=== PATIENT | female | born 1965 | race Asian ===

== ENCOUNTER 2025-02-22 15:10 | Outpatient (AMB) | payer OTHER, SELFPAY ==
--- NOTE | 2025-02-22 15:24 | MHC.OFFVIS ---
Vital Signs 02/22/25 15:28 Height 5 ft 2 in Weight 153 lb BMI 28.0 BP 110/64 Blood Pressure Location Rt brachial Position Sitting Pulse 70 Pulse Source Pulse Oximeter Pulse Oximetry (%) 98 Oxygen Delivery Method Room Air Intake Visit Reasons: Cough Vocational Examiner Required: Yes Certified Emergency Vehicle Technician: Certified Emergency Vehicle Technician offered & declined Accompanied by: Daughter Allergies No Known Allergies Allergy (Verified 02/22/25 15:31) Medication List - Last Reconciled 02/22/25 by Usha Hinojosa LPN atorvastatin 20 mg PO DAILY HPI HPI Cough: Details: Dominique is a pleasant 59 year old female, never smoker, with underlying HLD. She was referred by PCP for pulmonary evaluation. She reports chronic dry cough that has persisted for the last three years that has progressively worsened. Cough is mostly dry however occasionally productive with clear sputum. She reports cough is triggered by cold and more persistent after URI. She also reports occasional increased fatigue with exertion. She denies wheezing or chest tightness. She has trialed tessalon perles and delsyum with minimal improvement. She denies h/o asthma/COPD. She denies second hand smoke exposure. She denies any reflux symptoms. She denies seasonal allergies, or any pets at home. She denies occupational exposures. She reports father, smoker, with some lung condition however unknown, otherwise denies pertinent family history. [facility] Social History (Updated 02/22/25 @ 15:29 by Usha Hinojosa LPN) Patient Tobacco Use Status: Never used Tobacco Review of Systems Const Denies chills, Denies excessive sweating, Denies fever(s), Denies headache(s) and Denies night sweats Eyes Denies dry eyes, Denies irritation and Denies itchy eyes ENT Reports Normal hearing present, Denies headache(s), Denies nasal congestion, Denies nasal discharge, Denies post nasal drip and Denies sore throat Card Denies chest pain, Denies chest pain at rest, Denies chest pain with activity, Denies claudication, Denies leg edema, Denies dyspnea, Denies dyspnea on exertion, Denies orthopnea and Denies paroxysmal nocturnal dyspnea Resp Denies chest congestion, Denies excessive phlegm production, Denies pain on inspiration, Denies pain with cough, Denies dyspnea, Denies dyspnea on exertion, Denies stridor and Denies wheezing Musc Denies myalgias Neuro Reports Normal hearing present and Denies headache(s) Endo Denies excessive sweating Colt/Lymph Denies lymphadenopathy Aller/Immun Denies itchy eyes, Denies seasonal rhinorrhea and Denies wheezing Physical Exam Vital Signs: Last Vital Signs Pulse 70 02/22/25 15:28 BP 110/64 02/22/25 15:28 Pulse Ox 98 02/22/25 15:28 Oxygen Delivery Method Room Air 02/22/25 15:28 BMI result Body Mass Index 28.0 Const General: cooperative, healthy appearing, comfortable, no acute distress, well developed and alert Orientation/consciousness: patient oriented x3 Limitations: no limitations HEENT Head: Yes normal to inspection, Yes normocephalic and Yes atraumatic Ears: hearing grossly normal bilaterally and external ears normal Eyes General: appearance normal, both eyes and all related structures Eyelids: Yes eyelids normal Sclerae: sclerae normal EOM: EOMs intact bilaterally Neck Neck: Yes normal visual inspection and Yes no lymphadenopathy Lymphatic: no lymphadenopathy noted Chest Chest palpation & inspection: normal inspection of the chest Resp Effort & Inspection: normal respiratory effort, able to speak in complete sentences, no audible wheezes, no cough, no stridor, not tachypneic, no tripod positioning and no use of accessory muscles Auscultation: clear to auscultation bilaterally Cardio Jugular venous distension: no JVD Rate: regular rate Rhythm: regular rhythm Skin Other: warm, dry General skin exam: no rashes or lesions noted Neuro General: patient oriented x3 Cranial nerves: Yes Normal hearing present Cognition (Neuro): normal cognition Gait exam (Neuro): Normal gait present Extrem General: Yes normal to inspection, Yes capillary refill normal, Yes no clubbing, cyanosis or edema and Yes no pedal edema Psych Appearance: grossly normal and well kempt Speech and movement: Normal speech and movement present and Clear speech present Affect: normal affect Attitude: cooperative Thought process: Normal thought process present Thought content: Normal thought content present Insight: Good insight present (Psych) Judgement: Good judgement present (Psych) Assessment & Plan Assessment & Plan (1) Reactive airway disease: Code(s): J45.909 - Unspecified asthma, uncomplicated Category: Medical (2) Cough: Code(s): R05.9 - Cough, unspecified Category: Medical Plan Dominique presents for pulmonary evaluation for chronic cough that has progressively worsened over the last three years. She reports symptoms triggered by cold weather and respiratory infections suggestive of reactive airways disease vs asthma. Will empirically trial albuterol MDI. Will send for PFT as well as CXR. All questions were answered and patient is in agreement of plan. Will follow up to review results or sooner if needed. Orders: Orders XR chest 2V Today R05.9 - Cough, unspecified PFT pulmonary function test Today R05.9 - Cough, unspecified Medications: New albuterol sulfate 90 mcg/actuation 2 puffs inhalation Q4-6H PRN 1 ea 0RF shortness of breath or wheezing Coding Level of Care Code New Pt Level 4 (69964) Diagnoses Reactive airway disease J45.909 Cough R05.9
[2025-02-22 15:28] VITALS: BP 110/64; PULSE 70; O2SAT 98; BMI 28.0
--- OUTSIDE RECORDS SUMMARY | 2025-02-22 18:11 | XMS_ITS ---
Author Organization [facility] Address [address] [place] [id number] Care Team Providers Care Carving Machine Operator Name Role Phone GILDA MCKNIGHT Primary Care Provider REASON FOR VISIT referral to [facility] Encounters Encounter Location Date Provider Diagnosis [address] [address] 01/20/2025 GILDA MCKNIGHT Plan Of Treatment Next Appt Details Provider Name:GILDA MCKNIGHT , 11/24/2025 08:00:00 AM, [address] [place] [address], [place], [phone], Progress Notes * LEIGH GODDARD TDOB: [birth year] (59 yo F)Acc No.[id number]:01/20/2025 Patient:?LEIGH GODDARD :1965???Age:59 Y???Sex:Female Address:[address] [place] [id number] * true * Date:? Generated for Printi evelyn/Tony/eTransmitting on:?02/22/2025 06:11 PM EDT
--- OUTSIDE RECORDS SUMMARY | 2025-02-22 18:12 | XMS_ITS | Patient Health Record ---
Author Organization [facility] Address [address] [place] [address] Care Team Providers Care Retail Salesperson Name Role Phone GILDA MCKNIGHT Primary Care Provider Allergies No Known Allergies Results Component Value Reference Range Notes Lipid Panel-[id number] Reviewed date:07/17/2024 10:15:38 AM Interpretation: Performing Lab:[facility], [address] [facility], [place], Phone - [phone], Director - Jacoby Notes/Report: Cholesterol, Total 135 100-199 mg/dL Triglycerides 112 0-149 mg/dL HDL Cholesterol 44 >39 mg/dL VLDL Cholesterol Jose Antonio 20 5-40 mg/dL LDL Chol Calc (NIH) 71 0-99 mg/dL Reason For Referral Reason CHRONIC COUGH- DR TIAN BOWSER Diagnosis 1 Cough, unspecified ( R05.9) Referral Organization [facility] Referring Provider First Name GILDA Referring Provider Last Name ROXANNA Referring Provider Speciality Internal M edicine Referred Provider Specialty Pulmonary Di [facility] General Notes Referral faxed to [facility]. Please call patient to schedule.Maddie Christy 01/20/2025 03:03:55 PM > Referral Priority Routine Medications Medication SIG (Take, Route, Frequency, Duration) Notes Start Date End Date Status Atorvastatin Calcium 20 MG 1 tablet Oral ly Once a day for 30 days 01/06/2024 Active Immunizations Vaccine Route Administration Date Status Comme nts COVID 19 Pfizer Unknown 02/10/2021 Administered COVID 19 Pfizer Unknown 03/03/2021 Administered COVID 19 Pfizer Unknown 10/09/2021 Administered Flublok Unknown 09/15/2024 Administered Fluzone QD Unknown 12/11/2022 Administered Shingrix Unknown 09/19/2020 Administered Shingrix Unknown 02/24/2022 Administered Tdap Unknown 08/23/2019 Administered Social History Tobacco Use: Social History Observation Description Date Details (start date - stop date) Never Smoker NA - NA Tobacco Use/Smoking Question Answer Notes Are you a nonsmoker Alcohol Screen (Audit-C) Question Answer Notes Did you have a drink containing alcohol in the p ast year? No Points 0 Interpretation Negative Problems Problem Type SNOMED Code ICD Code Onset Dates Problem Status W/U Status Risk Notes Problem Mixed hyperlipidemia (832086969) Mixed hyperlipidemia (E78.2) Active confirmed Vital Signs Heart Rate 71 /min 11/22/2024 Temperature 96.9 degrees Fahrenheit 11/22/2024 Blood pressure diastolic 84 mm Hg 11/22/2024 Oximetry 99 % 11/22/2024 Height 5'2 in 11/22/2024 Blood pressure systolic 130 mm Hg 11/22/2024 Weight 150.6 lbs 11/22/2024 BMI 27.54 kg/m2 11/22/2024 Encounters Encounter Location Date Provider Diagnosis [address] [place] [address] 11/22/2024 VO GUL Mixed hyperlipidemia E78.2 ; Annual physical exam Z00.00 ; Impaired fasting glucose R73.01 and Cough, unspecified R05.[address] [place] [address] 02/25/[address] [place] [address] 03/07/[address] [place] [address] 03/09/[address] [place] [address] 04/18/2024 VO GUL Mixed hyperlipidemia E78.[address] [place] [address] 01/20/2025 VO GUL Assessments Encounter Date Diagnosis (ICD Code) Assessment Notes Treatment Notes Treatment Clinical Notes Section Notes 04/18/2024 Mixed hyperlipidemia (ICD-10 - E78.2) 11/22/2024 Mixed hyperlipidemia (ICD-10 - E78.2) Mrs Goddard is pleasant 59 years old lady with hyperlipidemia is here for annual physical. She is accompanied by her daughter is translating for her. She complains of chronic cough which at times is productive for the past few months. Plan is as follows Hyperlipidemia. Continue atorvastatin 20 mg 1 tablet daily and repeat blood work in one year Impaired fasting glucose. Diet restrictions and check fasting sugars and hemoglobin A1c. Chronic cough. She does not have red flags to skin be seasonal allergies, postnasal drip or possibility of silent reflux. She is given referral to see pulmonology for further workup EKG is normal sinus rhythm at 60 bpm with no acute ST-T wave changes, no bundle branch blocks, normal intervals. She is full code and her is her healthcare proxy. She is up to date on age-specific screening. Referral for mammogram and she would get pneumonia vaccine. 11/22/2024 Annual physical exam (ICD-10 - Z00.00) Mrs Goddard is pleasant 59 years old lady with hyperlipidemia is here for annual physical. She is accompanied by her daughter is translating for her. She complains of chronic cough which at times is productive for the past few months. Plan is as follows Hyperlipidemia. Continue atorvastatin 20 mg 1 tablet daily and repeat blood work in one year Impaired fasting glucose. Diet restrictions and check fasting sugars and hemoglobin A1c. Chronic cough. She does not have red flags to skin be seasonal allergies, postnasal drip or possibility of silent reflux. She is given referral to see pulmonology for further workup EKG is normal sinus rhythm at 60 bpm with no acute ST-T wave changes, no bundle branch blocks, normal intervals. She is full code and her is her healthcare proxy. She is up to date on age-specific screening. Referral for mammogram and she would get pneumonia vaccine. 11/22/2024 Impaired fasting glucose (ICD-10 - R73.01) Mrs Goddard is pleasant 59 years old lady with hyperlipidemia is here for annual physical. She is accompanied by her daughter is translating for her. She complains of chronic cough which at times is productive for the past few months. Plan is as follows Hyperlipidemia. Continue atorvastatin 20 mg 1 tablet daily and repeat blood work in one year Impaired fasting glucose. Diet restrictions and check fasting sugars and hemoglobin A1c. Chronic cough. She does not have red flags to skin be seasonal allergies, postnasal drip or possibility of silent reflux. She is given referral to see pulmonology for further workup EKG is normal sinus rhythm at 60 bpm with no acute ST-T wave changes, no bundle branch blocks, normal intervals. She is full code and her is her healthcare proxy. She is up to date on age-specific screening. Referral for mammogram and she would get pneumonia vaccine. 11/22/2024 Cough, unspecified (ICD-10 - R05.9) Mrs Goddard is pleasant 59 years old lady with hyperlipidemia is here for annual physical. She is accompanied by her daughter is translating for her. She complains of chronic cough which at times is productive for the past few months. Plan is as follows Hyperlipidemia. Continue atorvastatin 20 mg 1 tablet daily and repeat blood work in one year Impaired fasting glucose. Diet restrictions and check fasting sugars and hemoglobin A1c. Chronic cough. She does not have red flags to skin be seasonal allergies, postnasal drip or possibility of silent reflux. She is given referral to see pulmonology for further workup EKG is normal sinus rhythm at 60 bpm with no acute ST-T wave changes, no bundle branch blocks, normal intervals. She is full code and her is her healthcare proxy. She is up to date on age-specific screening. Referral for mammogram and she would get pneumonia vaccine. Plan Of Treatment Pending Test Test Name Order Date Chest X-ray PA and lateral 02/15/2024 MAMMOGRAM, SCREENING 11/22/2024 HEMOGLOBIN A1C 08/06/2023 LIPID PANEL 01/04/2024 Future Test Test Name Order Date Hemoglobin [id number] 11/22/2024 Lipid Panel-[id number] 11/22/2024 Comp. Metabolic Panel [id number] 2023 Next Appt Details Provider Name:GILDA MCKNIGHT , 11/24/2025 08:00:00 AM, [address] [place] [address], [phone], Insurance Providers Payer Name Payer Address Payer Phone Subscriber Number Group Number Insured Name Patient Relationship to Insured Coverage Start Date Coverage End Date [facility] [address] [place] [address] [id number] LEIGH GODDARD Self - patient is the insured Medical (General) History Medical History History ICD Code Mixed hyperlipidemia Impaired fasting glucose Surgical History Surgery Date(Month/Year) total hysterectomy, excessive bleeding 2 019
--- OUTSIDE RECORDS SUMMARY | 2025-02-22 18:12 | XMS_ITS ---
Author Organization [facility] Address [address] [place] [address] Care Team Providers Care Rn Interventional Name Role Phone SOLCaleb VO Primary Care Provider Allergies No Known Allergies Reason For Referral Reason CHRONIC COUGH- DR TIAN BOWSER Diagnosis 1 Cough, unspecified ( R05.9) Referral Organization [facility] Referring Provider First Name GILDA Referring Provider Last Name ROXANNA Referring Provider Speciality Internal M edicine Referred Provider Specialty Pulmonary Di seases General Notes Referral faxed to nic Pulmonology. Please call patient to schedule.Maddie Christy 01/20/2025 03:03:55 PM > Referral Priority Routine REASON FOR VISIT CPE Medications Medication SIG (Take, Route, Frequency, Duration) Notes Start Date End Date Status Atorvastatin Calcium 20 MG 1 tablet Oral ly Once a day for 30 days 01/06/2024 Active Social History Tobacco Use: Social History Observation Description Date Details (start date - stop date) Never Smoker NA - NA Tobacco Use/Smoking Question Answer Notes Are you a nonsmoker Alcohol Screen (Audit-C) Question Answer Notes Did you have a drink containing alcohol in the p ast year? No Points 0 Interpretation Negative Vital Signs Temperature 96.9 degrees Fahrenheit 11/22/20 Oximetry 99 % 11/22/2024 Heart Rate 71 /min 11/22/2024 Blood pressure systolic 130 mm Hg 11/22/20 Blood pressure diastolic 84 mm Hg 024 Weight 150.6 lbs 11/22/2024 BMI 27.54 kg/m2 11/22/2024 Height 5'2 in 11/22/2024 Encounters Encounter Location Date Provider Diagnosis [facility] [address] [place] [address] 11/22/2024 GILDA MCKNIGHT Mixed hyperlipidemia E78.2 ; Annual physical exam Z00.00 ; Impaired fasting glucose R73.01 and Cough, unspecified R05.9 Assessments Encounter Date Diagnosis (ICD Code) Assessment Notes Treatment Notes Treatment Clinical Notes Section Notes 11/22/2024 Mixed hyperlipidemia (ICD-10 - E78.2) Mrs [...] Treatment Pending Test Test Name Order Date MAMMOGRAM, SCREENING 11/22/2024 Future Test Test Name Order Date Hemoglobin [id number] 11/22/2024 Lipid Panel-[id number] 11/22/2024 Comp. Metabolic Panel ([id number] 2023 Referrals Referral Date Details 11/22/2024 11/22/2024, CHRONIC COUGH- DR ALCARAZ Next Appt Details Follow Up: 1 Year- Sarah HUANG n: Provider Name:GILDA MCKNIGHT , 11/24/2025 08:00:00 AM, [address] [place] [address], [phone], Progress Notes * LEIGH GODDARD TDOB: [birth year] (59 yo F)Acc No.[id number]:11/22/2024 Progress Notes Patient:LEIGH MEZA Provider:?GILDA MCKNIGHT MD :1965???Age:59 Y???Sex:Female D ate:11/22/2024 Address:[address] [place], [place] [id number] Subjective: * Chief Complaints: * ???CPE * HPI: ???Internal Medicine:?Mrs. Goddard is a 58-year-old Malawian-speaking lady and? She is accompanied by her daughter who translates for her. She is here for her annual physical.? She has hyperlipidemia currently on atorvastatin and last lipid panel was within reasonable limits.? She also complains of productive cough.? She is non-smoker.? Is been going on for a long time.? She is physically active and exercises regularly. She does not appear anxious or depressed. She sleeps well, appetite is good. She has stress incontinence. No GI symptoms. She denies any other active issues or concerns. * ROS:?General/Constitutional:?Overall health?Good.?Change in appetite?denies.?Chills?denies.?Fever?denies.?Night sweats?denies.?Sleep disturbance?denies.?Weight gain?denies.?Weight loss?denies.?Neurologic:?Difficulty speaking?denies.?Dizziness?denies.?Gait abnormality?denies.?Headache?denies.?Loss of strength?denies.?Memory loss?denies.?Seizures?denies.?Tingling/Numbness?denies .?Ophthalmologic:?Blurred vision?denies.?Discharge?denies.?Dry eye?denies.?Red eye?denies.?ENT:?Change in Voice?Denies.?Cold Symptoms?Denies.?Cough?Admits.?Dizziness?Denies.?Nasal Congestion?Denies.?Otalgia?Denies.?postnasal drip?Denies.?Blocked ear?denies.?Nosebleed?denies.?Snoring?denies.?Cardiovascular:?Diaphoresis?Denies.?Pedal Edema?Denies.?PND (Paroxsymal nocturnal dyspnea)?Denies.?Chest pain?denies.?Difficulty laying flat?denies.?Dyspnea on exertion?denies.?Heart murmur?denies.?Orthopnea?denies.?Respiratory:?Snoring?denies.?Asthma?denies.?Cough?denies.?Shortness of breath with exertion?denies.?Sputum production?denies.?Wheezing?denies.?Gastrointestinal:?Change in bowel habits?denies.?Constipation?denies.?Decreased appetite?denies.?Diarrhea?denies.?Heartburn?denies.?Nausea?denies.?Vomiting?arcadio es.?Musculoskeletal:?tingling/numbness?Denies.?myalgias?Denies.?Joint Swelling?Denies.?extremeties?normal.?Arthritis?denies.?Back problems?denies.?Carpal tunnel?denies.?Joint stiffness?denies.?Muscle aches?denies.?Endocrine:?Bowel Changes?Denies.?Breast Discharge?Denies.?poor libido?Denies.?Cold intolerance?denies.?Excessive sweating?denies.?Excessive thirst?denies.?Frequent urination?denies.?Thyroid problems?denies.?Skin:?Bruising?Denies.?Eczema?denies.?Hair changes?denies.?Rash?denies.?Skin lesion(s)?denies.?Psychiatric:?Anxiety?denies.?Depressed mood?denies.?Difficulty sleeping?denies.?Nervous breakdown?denies.?Substance abuse?denies.?Urology:?abnormal menstrual bleeding?denies.?blood in urine?denies.?burning on urination?denies.?difficulty urinating?denies.?discharge?denies.?dysuria?denies.? * Medical History:? * Surgical History:?total hyst erectomy, excessive bleeding 2019 * Hospitalization/Major Diagno stic Procedure:? * Family History:?2 daughter(s ) . .? diabetes. * Social History:?Tobacco Use:?Tobacco Use/Smoking?Are you a?nonsmoker ???Drugs/Alcohol:?Alcohol Screen (Audit-C)?Did you have a drink containing alcohol in the past year??No ?Points?0 ?Interpretation?Negative ???Miscellaneous:?Children: 2. ?Exercise: yes. ?Marital status: . ?Occupation: Works full-time, works in the [employer]. * Medications:?TakingAtorvasta tin Calcium 20 MG Tablet 1 tablet Orally Once a day Taking Atorvastatin Calcium 20 MG Tablet 1 tablet Orally Once a day DiscontinuedBenzonatate 100 MG Capsule 1 capsule as needed Orally Three times a day predniSONE 20 MG Tablet 1 tablet Orally Once a day Tessalon Perles 100 MG Capsule 1 capsule Orally Once a day Medication List reviewed and reconciled with the patientDiscontinued Benzonatate 100 MG Capsule 1 capsule as needed Orally Three times a day Discontinued predniSONE 20 MG Tablet 1 tablet Orally Once a day Discontinued Tessalon Perles 100 MG Capsule 1 capsule Orally Once a day Medication List reviewed and reconciled with the patient * Allergies:?N.K.D.A.no[Allerg ies Verified] Objective: * Vitals:?Temp:96.9F, Oxygen s at %:99%, HR:71/min, BP:130/84mm Hg, Wt:150.6lbs, BMI:27.54Index, Ht: 5'2 . * ???Past Orders: Lab:Lipid Panel-[id number] * Collection Date 07/15/2024 03/24/2024 Collection Time 09:08 AM 08:01 AM Order Date 04/18/2024 02/15/2024 Cholesterol, Total 135 (Ref Range: 100-199 mg/dL) 150 (Ref Range: 100-199 mg/dL) Triglycerides 112 (Ref Range: 0-149 mg/dL) 94 (Ref Range: 0-149 mg/dL) HDL Cholesterol 44 (Ref Range: >39 mg/dL) 45 (Ref Range: >39 mg/dL) VLDL Cholesterol Jose Antonio 20 (Ref Range: 5-40 mg/dL) 18 (Ref Range: 5-40 mg/dL) LDL Chol Calc (NIH) 71 (Ref Range: 0-99 mg/dL) 87 (Ref Range: 0-99 mg/dL) ???Lab:COMPREHENSIVE METABOLIC PANEL (Order Date - 08/05/2023) (Collection Date & Time - 08/05/2023 09:00 AM)?ValueReference Range?ALBUMIN4.5(3.4- 4.8) - GM/DL?ALK PHOS78(35-104) - U/L?BILIRUBIN,TOTAL0.5(0-1.2) - MG/DL?CALCIUM9.6(8.6-10.5) - MG/DL?XOQWKOYPQQI54(22-29) - MMOL/L ?JARELALR393(98-107) - MMOL/L?EST GFR NON IEFMWOSE579- ML/MIN/1.73 M2?CREATININE0.6(0.5-1.0) - MG/DL?ANION GAP11(4-17) - ?HHLAUST336D(70-99) - MG/DL?AST27(0-32) - U/L?ALT30(0-33) - U/L?POTASSIUM4.2(3.6-5.2) - MMOL/L?XCJJPI433(133-145) - MMOL/L ?TOTAL PROTEIN6.8(6.2-8.2) - GM/DL?BUN15(6-20) - MG/DL?AG RATIO2.0- ???Lab:LIPID PANEL (Order Date - 08/05/2023) (Collection Date & Time - 08/05/2023 09:00 AM)?ValueReference Range?LDL CHOLESTEROL, VTYHIOPQDB254V(0-130) - MG/DL?CHOLESTEROL, EADQR056N(<200) - MG/DL ?HDL CHOL55(>39) - MG/DL?NON HDL CHOLESTEROL (CALC)190H(<160) - MG/DL?TKBVKBAPJZLK74(<150) - MG/DL * Examination: ???General Examination: ?Psychiatry?Normal.?GENERAL APPEARANCE:?Well developed, well nourished, in no acute distress.?MUSCULOSKELETAL:?Normal.?HEAD:?Normocephalic, atraumatic.?EYES:?Pupils equal, round, reactive to light and accommodation, sclera non-icteric.?EARS:?auditory canal clear tympanic membrane intact, clear light reflex present .?ORAL CAVITY:?Normal.?THROAT:?Clear.?OROPHARYNX?Normal.?SINUSES?Normal.?NECK/THYROID:?Neck supple, full range of motion, no cervical lymphadenopathy.?SKIN:?Warm and dry, no suspicious lesions.?HEART:?S1, S2 normal regular rate and rhythm no murmurs, rubs, gallops .?LUNGS:?clear to auscultation bilaterally good air movement no wheezes, rales, rhonchi .?BREASTS:?__.?ABDOMEN:?Soft, nontender, nondistended, bowel sounds present, normal.?EXTREMITIES:?Normal.?PERIPHERAL PULSES:?Normal.?NEUROLOGIC:?Nonfocal,? appropriate?motor strength normal upper and lower extremities, sensory exam intact.?FEMALE GENITOURINARY:?__.?MALE GENITOURINARY:?__.?PODIATRIC:?Normal.?Welfare Project Manager? .? Assessment: * Assessment: 1.?Annual physical exam - Z0 0.00 (Primary)???2.?Mixed hyperlipidemia - E78.2???3.?Impaired fasting glucose - R73.01???4.?Cough, unspecified - R05.9??? Mrs Goddard is pleasant 59 ye ars old lady with hyperlipidemia is here for annual physical.? She is accompanied by her daughter is translating for her.? She complains of chronic cough which at times is productive for the past few months.? Plan is as follows Hyperlipidemia.? Continue atorvastatin 20 mg 1 tablet daily and repeat blood work in one year Impaired fasting glucose.? Diet restrictions and check fasting sugars and hemoglobin A1c. Chronic cough.? She does not have red flags to skin be seasonal allergies, postnasal drip or possibility of silent reflux.? She is given referral to see pulmonology for further workup EKG is normal sinus rhythm at 60 bpm with no acute ST-T wave changes, no bundle branch blocks, normal intervals. She is full code and her is her healthcare proxy. She is up to date on age-specific screening.? Referral for mammogram and she would get pneumonia vaccine. Plan: * Treatment: 2.?Mixed hyperlipidemia?LAB: Lipid Panel-[id number] (Ordered for 11/22/2024) 3.?Impaired fasting glucose?LAB: Hemoglobin [id number] (Ordered for 11/22/2024) 4.?Others? Referral To:Pulmonary Diseases ?Reason:CHRONIC COUGH- DR ALCARAZ * Procedure Codes:?3075F SYST BP GE 130 - 139MM [id number] DIAST BP 80-89 MM [id number] ELECTROCARDIOGRAM, [id number] BRIEF EMOTIONAL/BEHAV [id number] AUDIT/DAST, 15-30 MIN * Preventive Medicine:?COVID (3) 2020 FLU 2023 SHINGRIX 08/2020, 01/2022 TDAP 07/2019 BMD NO COLONOSCOPY 09/2020 10 YR? EYE EXAM NO [employer] SOCIAL WORKER NO MAMMOGRAM [facility] 02/2023. * Follow Up:?1 Year- AW * * Sign off status: Completed true * Provider:?GILDA MCKNIGHT MD Date:?11/22 Generated for Zach rivas/Tony/eTransmitting on:?02/22/2025 06:11 PM EDT History and Physical Notes * HPI (History of Present Illness) Category Sub-Category Detail Notes Category Not es Internal Medicine Mrs. Drew dixon is a 58-year-old Malawian-speaking lady and She is accompanied by her daughter who translates for her. She is here for her annual physical. She has hyperlipidemia currently on atorvastatin and last lipid panel was within reasonable limits. She also complains of productive cough. She is non-smoker. Is been going on for a long time. She is physically active and exercises regularly. She does not appear anxious or depressed. She sleeps well, appetite is good. She has stress incontinence. No GI symptoms. She denies any other active issues or concerns. Examination Category Sub-Category Detail Notes Category Not es General Examination GENERAL APPEARANCE: Well dev eloped, well nourished, in no acute distress HEAD: Normocephalic, atrau matic EYES: Pupils equal, round, reactive to light and accommodation, sclera non-icteric EARS: auditory canal clear tympanic membrane intact, clear light reflex present THROAT: Clear NECK/THYROID: Neck supple, full ra nge of motion, no cervical lymphadenopathy HEART: S1, S2 normal regula r rate and rhythm no murmurs, rubs, gallops LUNGS: clear to auscultatio n bilaterally good air movement no wheezes, rales, rhonchi ABDOMEN: Soft, nontender, non distended, bowel sounds present, normal NEUROLOGIC: Nonfocal, appropriat e motor strength normal upper and lower extremities, sensory exam intact SKIN: Warm and dry, no lorrie picious lesions EXTREMITIES: Normal PERIPHERAL PULSES: Normal BREASTS: __ MUSCULOSKELETAL: Normal MALE GENITOURINARY: __ FEMALE GENITOURINARY: __ ORAL CAVITY: Normal PODIATRIC: Normal Psychiatry Normal OROPHARYNX Normal SINUSES Normal Welfare Project Manager Consultation Request Notes Referral Date Referring Provider Referred Provider Not es 11/22/2024 GILDA MCKNIGHT , CHRONIC COUGH- DR ALCARAZ
--- OUTSIDE RECORDS SUMMARY | 2025-02-22 18:12 | XMS_ITS ---
Author Organization [facility] Address [address] [place] [address] Care Team Providers Care Citizenship Instructor Name Role Phone TRAN MCKNIGHTVO Primary Care Provider Results Component Value Reference Range Notes Lipid Panel-[id number] Reviewed date:07/17/2024 10:15:38 AM Interpretation: Performing Lab:[facility], [address], [place], Phone - [phone], Director - Jacoby Notes/Report: Cholesterol, Total 135 100-199 mg/dL Triglycerides 112 0-149 mg/dL HDL Cholesterol 44 >39 mg/dL VLDL Cholesterol Jose Antonio 20 5-40 mg/dL LDL Chol Calc ([facility]) 71 0-99 mg/dL REASON FOR VISIT Atorvastatin Medications Medication SIG (Take, Route, Frequency, Duration) Notes Start Date End Date Status Atorvastatin Calcium 20 MG 1 tablet Oral ly Once a day for 30 days 01/06/2024 Active Encounters Encounter Location Date Provider Diagnosis [facility] [address] [address] 04/18/2024 GILDA MCKNIGHT Mixed hyperlipidemia E78.2 Assessments Encounter Date Diagnosis (ICD Code) Assessment Notes Treatment Notes Treatment Clinical Notes Section Notes 04/18/2024 Mixed hyperlipidemia (ICD-10 - E78.2) Plan Of Treatment Medication Medication Name Sig Start Date Stop Date Notes Atorvastatin Calcium 20 MG 1 tablet Oral ly Once a day for 30 days 01/06/2024 Next Appt Details Provider Name:GILDA Nicole SOLCaleb , 11/24/2025 08:00:00 AM, [address] [place] [address] [address], [place], [address], Progress Notes * LEIGH GODDARD TDOB: [birth year] (58 yo F)Acc No.[id number]:04/18/2024 Patient:?LIEGH GODDARD :1965???Age:58 Y???Sex:Female Address:[address] [place] [address] * Refills? Refill Atorvastatin Calcium Tablet, 20 MG, Orally, 30, 1 tablet, Once a day, 30 days, Refills=5 Subjective: * Chief Complaints: * ???Atorvastatin * Medical History:? * Surgical History:? * Hospitalization/Major Diagno stic Procedure:? * Medications:? Objective: Assessment: * Assessment: 1.?Mixed hyperlipidemia - E7 8.2? Plan: * Treatment: 2.?Others? Refill Atorvastatin Calcium Tablet, 20 MG, 1 tablet, Orally, Once a day, 30 days, 30, Refills 5.?? * Procedure Codes:? * true * Date:? Generated for Zach rivas/Tony/Pastoraitting on:?02/22/2025 06:11 PM EDT
--- OUTSIDE RECORDS SUMMARY | 2025-02-22 18:12 | XMS_ITS | Clinical Summary ---
Author Organization [facility] Address [address] [place] [address] Care Team Providers Care Director Card Name Role Phone Gail Obrien PA-C Primary Care Provider [phone] Source Comments PLEASE NOTE, if this patient is a minor, it may be UNLAWFUL to discuss sensitive information that is contained in these records (such as FAMILY PLANNING, MENTAL HEALTH or SUBSTANCE ABUSE) with the minor patient's parent or other person without the patient's specific authorization.[facility] Allergies No known active allergies Medications cholecalciferol , vitamin D3, 25 mcg (1,000 unit) capsuleIndicati ons:Vitamin D deficiency Take 1 Cap by mouth once daily 90 Cap 5 09/20/2020 Active acetaminophen (TYLENOL) 325 mg tabletIndicatio ns:Pain of left heel Take 2 Tablets by mouth every 6 (six) hours as needed (acute heel pain) 60 Tablet 10/22/2020 Active ibuprofen 600 mg tabletIndicatio ns:Plantar fasciitis of right foot Take 1 Tablet by mouth every 6 (six) hours as needed (acute heel pain) 30 Tablet 12/11/2022 Active Active Problems Problem Noted Date Diagnosed Date Plantar fasciitis of right foot 04/06/2023 Overview (04/06/2023): 03/31/23 [facility] - PT, NSAID and heel support History of colonoscopy 02/24/2022 Overview (02/24/2022): [facility] on 10/08/2020. Internal Hemorrhoids. Repeat in 10 years. 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 Resolved Problems Problem Noted Date Diagnosed Date Resolved Date Gall bladder polyp 09/17/2015 9 Hyperlipidemia 02/14/2015 08/23/2019 Immunizations Immunization Administration Dates Next Due Flu, Preservative Free 12/11/2022,09/19/2020, INFLUENZA, SEASONAL, INJECTABLE 02/14/2015 TDAP 08/23/2019 ZOSTER VACCINE, RECOMBINANT (SHINGRIX) 2,09/19/2020 Family History Medical History Relation Name Comments Asthma Father Diabetes Mother High Cholesterol Mother Hypertension Mother Relation Name Status Comments Brother 4 Alive Daughter 1 Alive Daughter 2 Alive Father Mother Alive Social History Tobacco Use Types Packs/Day Years Used Date Smoking Tobacco: Never Passive Smoke Exposure: Never Smokeless Tobacco: Never Tobacco Cessation:Counseling Given: Yes Alcohol Use Standard Drinks/Week Comments No 0 (1 standard drink = 0.6 oz pur e alcohol) Social Connections Answer Date Recorded Connectedness 0 02/24/2022 Financial Resource Strain Answer Date R ecorded Financial Resource Strain 0 2021 Stress Answer Date Recorded Stress 0 02/24/2022 Physical Activity Answer Date Recorded Physical Activity 0 07/23/2019 Food Insecurity Answer Date Recorded Food 0 02/24/2022 Transportation Needs Answer Date Record ed Transportation 0 02/24/2022 Housing Stability Answer Date Recorded Housing 0 02/24/2022 Safety and Environment Answer Date Johnathan rded Safety 0 02/24/2022 Utilities Answer Date Recorded Utilities 0 02/24/2022 Employment Answer Date Recorded Employment 0 07/23/2019 Comments No Sex and Gender Information Value Date Recorded Sex Assigned at Female 08/23/2019 2:47 PM PDT Legal Sex Female 11:36 AM PDT Gender Identity Female 08/23/2019 2:47 PM PDT Sexual Orientation Straight 08/23/2019 2: 47 PM PDT Last Filed Vital Signs Vital Sign Reading Time Taken Comments Blood Pressure 132/87 04/08/2023 9:49 AM EDT Pulse 69 04/08/2023 9:49 AM EDT Temperature 36.9 ??C (98.5 ??F) 12/11/2022 4:31 PM ES T Respiratory Rate 16 12/11/2022 4:31 PM EST Oxygen Saturation - - Inhaled Oxygen Concentration - - Weight 72.6 kg (160 lb) 12/11/2022 4:31 PM EST Height 154.9 cm (5' 1 ) 12/11/2022 4:31 PM EST Body Mass Index 30.23 12/11/2022 4:31 PM EST Plan of Treatment Health Maintenance Due Date Last Done Comments Anxiety Screening 1967 Dental FMX/Pano 1967 HPV Screening 1967 Pap + HPV [address] Colonography 2012 Colonoscopy 2012 Colorectal Cancer Screening 2012 FIT/gFOBT 2012 Fecal DNA 2012 Flexible Sigmoidoscopy 2012 Annual Preventive Care Visit 02/24/2023, 09/19/2020, 08/23/2019, Additional history exists Breast Cancer Screening (Mammogram) 03/25/2023 03/25/2022, 10/07/2019, 10/03/2019 (Managed by Outside Provider) Dental BW 10/11/2023 10/09/2022 Hypertension Screening (#1) 04/07/2024 Dental Examination 04/10/2024 04/08/2023, 0 04/08/2023, 10/09/2022 Dental Perio Charting 04/10/2024 04/08/2023 Dental Prophy 04/10/2024 04/08/2023, 10/09/2022 [id number] ( season) 2024 10/09/2021, 03/03/2021, 02/10/2021 Imm-Influenza (#1) 2024 12/11/2022, 1 , 08/23/2019, Additional history exists Alcohol and Drug Screen 11/30/2024 12/11/19 23, 02/24/2022, 09/19/2020, Additional history exists Depression Annual Screen 11/30/2024 12/11/2022, 01/28 Diabetes Screening 02/26/2025 02/26/2022, 1 , 09/19/2020, Additional history exists Lipid Screening 02/26/2027 02/26/2022, 08/31, 08/23/2019, Additional history exists Imm-DTaP/Tdap/Td (2 - Td or Tdap) 08/23/2029 019 Pap Smear Discontinued 03/30/2014 Hepatitis B Screening Completed 02/14/2015 Hepatitis C Screening Completed 02/14/2015 HIV Screening Completed 09/19/2020, 08/23/2019 Imm-Zoster, Recombinant Completed 02/24/2022, 09/19 Cervical Ablation/Cold-Knife Conization Discontinued Cervical Cancer Screening Discontinued Cervical Cryotherapy Discontinued Colposcopy Discontinued Endometrial Biopsy Discontinued Excision/Leep Discontinued HPV Genotyping Discontinued Imm-Hepatitis B Discontinued Vaginal Pap Discontinued Vulvoscopy Discontinued Procedures Procedure Name Priority Date/Time Associated Diagnosis Comments PROPHYLAXIS - ADULT Routine 04/08/2023 9 :40 AM EDT Periodontal disease COMP ORAL EVALUATION - NEW/ESTABLISHED PATIENT Routine 04/08/2023 9:40 AM EDT Periodontal disease BITEWINGS - FOUR RADIOGRAPHIC IMAGES Routine 10/09/2022 11:00 AM EST Visit for dental examination REFERRAL FOR MAMMOGRAM Routine 3:00 AM EDT Encounter for screening mammogram for malignant neoplasm of breast COMPREHENSIVE METABOLIC PANEL Routine 02/26/2022 9:28 AM EDT Routine physical examination Overweight (BMI 25.0-29.9) LIPID PANEL Routine 02/26/2022 9:28 AM EDT Routine physical examination Overweight (BMI 25.0-29.9) ANTIBODY HIV-1&HIV-2 SINGLE RESULT Routine 09/19/2020 11:34 AM EDT Encounter for general adult medical examination w/o abnormal findings HEPATITIS A,B,C PANEL Routine 02/14/2015 10:10 AM EDT Routine adult health maintenance from Last 3 Months or Most Recently Relevant to Health Maintenance Results * REFERRAL FOR MAMMOGRAM (03/25/2022 3:00 AM EDT) 03/25/2022 3:00 AM EDT Gail Obrien PA-C IMG RFL MAMMO Edited Resul t - Final * (ABNORMAL) LIPID PANEL (02/26/2022 9:28 AM EDT) CHOLESTEROL, TOTAL 240(H) <200 mg/dL [facility] HDL CHOLESTEROL 53 > OR = 50 mg/dL [facility] TRIGLYCERIDES 113 <150 mg/dL [facility] LDL-CHOLESTEROL 164(H) 99 mg/dL (calc) [facility] Comment: Reference range: <100 Desirable range <100 mg/dL for primary prevention; ?? <70 mg/dL for patients with CHD or diabetic patients with > or = 2 CHD risk factors. LDL-C is now calculated using the Robbie calculation, which is a validated novel method providing better accuracy than the Friedewald equation in the estimation of LDL-C. Lj SHIELDS et al. BRI. 2013;310(50): 7716-4564 (http://education.[employer]/faq/UEY607) CHOL/HDLC RATIO 4.5 <5.0 (calc) [facility] NON-HDL CHOLESTEROL 187(H) <130 mg/dL (calc) [facility] Comment: For patients with diabetes plus 1 major ASCVD risk factor, treating to a non-HDL-C goal of <100 mg/dL (LDL-C of <70 mg/dL) is considered a therapeutic option. Blood Blood / Unknown 02/26/2022 9 :28 AM EDT 02/26/2022 9:28 AM EDT Narrative [facility] - 03/02/2022 12:04 PM EDT FASTING:YES us Gail Obrien PA-C LAB - BLOOD DRAW Final Resul t [facility] [address] [address], [facility] [address] [address] * COMPREHENSIVE METABOLIC PANEL (02/26/2022 9:28 AM EDT) [facility] GLUCOSE 98 65 - 99 mg/dL [facility] Comment: ?Fasting reference interval UREA NITROGEN (BUN) 10 7 - 25 mg/dL [facility] CREATININE (blood) 0.62 0.50 - 1.05 mg/dL [facility] Comment: For patients >49 years of age, the reference limit for Creatinine is approximately 13% higher for people identified as -[place]. GFR ESTIMATED 102 > OR = 60 mL/min/1 .73m2 [employer] [facility] EGFR 118 > OR = 60 mL/min/1 .73m2 [employer] [facility] BUN/CREATININE RATIO NOT APPLICABLE 6 - 22 [employer] [facility] SODIUM 136 135 - 146 mmol/L [employer] [facility] POTASSIUM 4.2 3.5 - 5.3 mmol/L [employer] [facility] CHLORIDE 101 98 - 110 mmol/L [employer] [facility] CARBON DIOXIDE 29 20 - 32 mmol/L [employer] [facility] CALCIUM 9.0 8.6 - 10.4 mg/dL [employer] [facility] PROTEIN, TOTAL 7.4 6.1 - 8.1 g/dL [employer] [facility] ALBUMIN 4.4 3.6 - 5.1 g/dL [employer] [facility] GLOBULIN 3.0 1.9 - 3.7 g/dL (calc) [employer] [facility] ALBUMIN/GLOBULIN RATIO 1.5 1.0 - 2.5 (calc) [employer] [facility] BILIRUBIN, TOTAL 0.8 0.2 - 1.2 mg/dL [employer] [facility] ALKALINE PHOSPHATASE 69 37 - 153 U/L [employer] [facility] AST 20 10 - 35 U/L [employer] [facility] ALT 18 6 - 29 U/L [employer] [facility] Blood Blood / Unknown 02/26/2022 9 :28 AM EDT 02/26/2022 9:28 AM EDT Narrative [facility] - 03/02/2022 12:04 PM EDT FASTING:YES Gail Obrien PA-C LAB - BLOOD DRAW Edited Resu lt - Final [employer] [facility] [address] [address], [employer] [facility] [address] [address] * HIV-1 & HIV-2 ANTIBODIES (09/19/2020 11:34 AM EDT) [facility] HIV 1 AND 2 ANTIBODY SCREEN NEGATIVE NEGATIVE [facility] Comment: This assay is a 4th generation assay allowing for earlier detection of HIV infection by detecting the presence of the HIV-1 p24 antigen as well as the traditional antibodies to HIV type 1 (including group O) and type 2. ??Use of a 4th generation assay is the current CDC recommendation for HIV screening. Blood Blood / Unknown 09/19/2020 1 1:34 AM EDT 09/19/2020 12:57 PM EDT [facility] - 09/19/2020 4:32 PM EDT [employer], [place] [address] Swimming Teacher - Marika Martin MD [place] [id number] ORD# [id number] Ilene KHAN LAB - BLOOD DRAW Final Resu lt Performing Organization Address City/[facility] Co de Phone Number [address] [address], * (ABNORMAL) HEPATITIS A,B,C PANEL (02/14/2015 10:10 AM EDT) HEPATITIS B SURFACE ANTIBODY POSITIVE(A) NEGATIVE [facility] HEPATITIS B SURFACE ANTIGEN NEGATIVE NEGATIVE [facility] HEPATITIS C VIRUS DIAGNOSTIC NEGATIVE NEGATIVE [facility] HEPATITIS A ANTIBODY TOTAL POSITIVE(A) NEGATIVE [facility] HEPATITIS B CORE ANTIBODY NEGATIVE NEGATIVE [facility] Blood specimen (specimen) Blood / Unknown 02/14/2015 10:10 AM EDT 02/14/2015 11:07 AM EDT [facility] - 02/14/2015 4:01 PM EDT [facility] [address] [place] [address] [place] [id number] ORD# [id number] Clint Engel MD LAB - BLOOD DRAW Edited Resu lt - Final Performing Organization Address City/[facility] Co de Phone Number [address] [address], from Last 3 Months or Most Recently Relevant to Health Maintenance Insurance HNE ([facility]) Member Subscriber Plan / Payer (Ef fective 2020-Present) Name:Dominique Lorenzo Relation to Subscriber:Self Name:Dominique Lorenzo Payer ID:[id number] Group ID:Not on file Type:Indemnity Address: [address] [place] [id number] [place] Care Teams Director Card Relationship Specialty Start Date End Date Gail Obrien PA-C [address] [place] [address] PCP - General 02/14/22
== END 2025-02-22 15:56 | disposition home or self-care (01) ==
LOC: HO.HPSW 15:11
PROVIDERS: PCP Hospitalist; Referring Provider Hospitalist; Visit Provider Nurse Practitioner Family
DX: J45.909 Unspecified asthma, uncomplicated (principal); R05.9 Cough, unspecified
CPT/HCPCS: 99204

== ENCOUNTER 2025-04-26 08:06 | Outpatient (REF) | payer OTHER, SELFPAY | END 2025-04-26 08:07 | disposition home or self-care (01) | LOC: HO.RESP 08:06 | PROVIDERS: PCP Hospitalist; Visit Provider Nurse Practitioner Family | DX: Z13.89 Encounter for screening for other disorder (principal) ==

== ENCOUNTER → 2025-06-07 13:45 | Outpatient (BNV) | payer OTHER, SELFPAY | PROVIDERS: PCP Hospitalist; Visit Provider Hospitalist | DX: R05.9 Cough, unspecified (principal) | CPT/HCPCS: 94060; 94727; 94729 ==

== ENCOUNTER 2025-06-07 13:47 | Outpatient (REF) | payer OTHER, SELFPAY ==
--- NOTE | 2025-06-07 | PFT_ITS ---
Indication: Cough Spirometry [ please note the patient had significant difficulties throughout the test performing the maneuvers. Multiple attempts were made therefore the data available is suboptimal. FEV1 to FVC 88%; FEV1 1.32 L; FVC 1.5 L. bronchodilators were not used.] Lung Volumes [ Multiple attempts were made the patient was not able to complete the maneuvers] Diffusion Capacity [ multiple attempts were made and the patient was not able to complete the maneuvers] Interpretation [ this was a very suboptimal study. The patient appears to have a restrictive ventilatory defect although will recommend repeating the study.] MTDD
--- OUTSIDE RECORDS SUMMARY | 2025-06-07 14:35 | XMS_ITS | Clinical Summary ---
Author Organization [facility] Address [address] [place] [address] Care Team Providers Care Lottery Sales Clerk Name Role Phone Gail Obrien PA-C Primary Care Provider [phone] Source Comments PLEASE NOTE, if this patient [...] 69 04/08/2023 9:49 AM EDT Temperature 36.9 C (98.5 F) 12/11/2022 4:31 PM EST Respiratory Rate 16 12/11/2022 4:31 PM EST [...] 2012 Fecal DNA 2012 Flexible Sigmoidoscopy 2012 Imm-Pneumococcal 50+ (1 of 1 - PCV) 2017 Annual Wellness (Adult): Indicated (All Coverage) 02/24/2023 02/24/2022, 09/19/2020, 08/23/2019, Additional history exists Breast Cancer Screening (Mammogram) 03/25/2023 03/25/2022, 10/07/2019, 10/03/2019 (Managed by Outside Provider) Dental BW 10/11/2023 10/09/2022 Hypertension Screening (#1) 04/07/2024 Dental Examination 04/10/2024 04/08/2023, 0 04/08/2023, 10/09/2022 Dental Perio Charting 04/10/2024 04/08/2023 Dental Prophy 04/10/2024 04/08/2023, 10/09/2022 [id number] ( season) 2024 10/09/2021, 03/03/2021, 02/10/2021 Alcohol and Drug Screen 11/30/2024 12/11/19 23, 02/24/2022, 09/19/2020, Additional history exists Depression Annual Screen 11/30/2024 12/11/2022, 01/28 Diabetes Screening 02/26/2025 02/26/2022, 1 , 09/19/2020, Additional history exists Imm-Influenza (#1) 2025 12/11/2022, 1 , 08/23/2019, Additional history exists Lipid Screening 02/26/2027 02/26/2022, 10/11/2019, 08/23/2019, Additional history exists Imm-DTaP/Tdap/Td (2 - [...] Health Maintenance Results * REFERRAL FOR MAMMOGRAM SCREENING (03/25/2022 3:00 AM EDT) 03/25/2022 3:00 AM EDT Gail Obrien PA-C IMG RFL MAMMO Edited Resul t - Final * (ABNORMAL) Lipid panel (02/26/2022 9:28 AM EDT) CHOLESTEROL, TOTAL 240(H) <200 mg/dL [facility] HDL CHOLESTEROL 53 > OR = 50 mg/dL [facility] TRIGLYCERIDES 113 <150 mg/dL [facility] LDL-CHOLESTEROL 164(H) 99 mg/dL (calc) [facility] Comment: Reference range: <100 Desirable range <100 mg/dL for primary prevention; <70 mg/dL for patients with CHD or diabetic patients with > or = 2 CHD risk factors. LDL-C is now calculated using the Robbie calculation, which is a validated novel method providing better accuracy than the Friedewald equation in the estimation of LDL-C. Lj SS et al. BRI. 2013;310(73): 4092-1397 (http://education.[employer]/faq/MLC984) CHOL/HDLC RATIO 4.5 <5.0 (calc) [facility] NON-HDL CHOLESTEROL 187(H) <130 mg/dL (calc) [facility] Comment: For patients with diabetes plus 1 major ASCVD risk factor, treating to a non-HDL-C goal of <100 mg/dL (LDL-C of <70 mg/dL) is considered a therapeutic option. Blood Blood / Unknown 02/26/2022 9 :28 AM EDT 02/26/2022 9:28 AM EDT Narrative [facility] - 03/02/2022 12:04 PM EDT FASTING:YES us Gail Obrien PA-C LAB - BLOOD DRAW Final Resul t [facility] [address] [facility] [address] [place] [address], [facility] [address] [address] * CMP (02/26/2022 9:28 AM EDT) GLUCOSE 98 65 - 99 mg/dL [facility] Comment: Fasting reference interval UREA NITROGEN (BUN) 10 7 - 25 mg/dL [facility] CREATININE (blood) 0.62 0.50 - 1.05 mg/dL [facility] Comment: For patients >49 years of age, the reference limit for Creatinine is approximately 13% higher for people identified as -[place] Citizen. GFR ESTIMATED 102 > OR = 60 mL/min/1 .73m2 [facility] EGFR 118 > OR = 60 mL/min/1 .73m2 [facility] BUN/CREATININE RATIO NOT APPLICABLE 6 - 22 [facility] SODIUM 136 135 - 146 mmol/L [facility] POTASSIUM 4.2 3.5 - 5.3 mmol/L [facility] CHLORIDE 101 98 - 110 mmol/L [facility] CARBON DIOXIDE 29 20 - 32 mmol/L [facility] CALCIUM 9.0 8.6 - 10.4 mg/dL [facility] PROTEIN, TOTAL 7.4 6.1 - 8.1 g/dL [facility] ALBUMIN 4.4 3.6 - 5.1 g/dL [facility] GLOBULIN 3.0 1.9 - 3.7 g/dL (calc) [facility] ALBUMIN/GLOBULIN RATIO 1.5 1.0 - 2.5 (calc) [facility] BILIRUBIN, TOTAL 0.8 0.2 - 1.2 mg/dL [facility] ALKALINE PHOSPHATASE 69 37 - 153 U/L [facility] AST 20 10 - 35 U/L [facility] ALT 18 6 - 29 U/L [facility] Blood Blood / Unknown 02/26/2022 9 :28 AM EDT 02/26/2022 9:28 AM EDT Narrative [facility] - 03/02/2022 12:04 PM EDT FASTING:YES us Gail Obrien PA-C LAB - BLOOD DRAW Edited Resu lt - Final [facility] [address] [address], [facility] [address] [address] * HIV-1 & HIV-2 ANTIBODIES (09/19/2020 11:34 AM EDT) [facility] HIV 1 AND 2 ANTIBODY SCREEN NEGATIVE NEGATIVE [facility] Comment: This assay is a 4th generation assay allowing for earlier detection of HIV infection by detecting the presence of the HIV-1 p24 antigen as well as the traditional antibodies to HIV type 1 (including group O) and type 2. Use of a 4th generation assay is the current CDC recommendation for HIV screening. Blood Blood / Unknown 09/19/2020 1 1:34 AM EDT 09/19/2020 12:[address] [facility] - 09/19/2020 4:32 PM EDT [employer], [place] [address] Nitrocellulose Maker - Marika Martin MD [place] [id number] ORD# [id number] Ilene KHAN LAB - BLOOD DRAW Final Resu lt Performing Organization Address City/[facility] Co de Phone Number [address] [address], * (ABNORMAL) HEPATITIS A,B,C PANEL (02/14/2015 10:10 AM EDT) HEPATITIS B SURFACE ANTIBODY POSITIVE(A) NEGATIVE [facility] HEPATITIS B SURFACE ANTIGEN NEGATIVE NEGATIVE [facility] HEPATITIS C VIRUS DIAGNOSTIC NEGATIVE NEGATIVE [facility] HEPATITIS A ANTIBODY TOTAL POSITIVE(A) NEGATIVE [facility] HEPATITIS B CORE ANTIBODY NEGATIVE NEGATIVE [facility] Blood specimen (specimen) Blood / Unknown 02/14/2015 10:10 AM EDT 02/14/2015 11:[address] [facility] - 02/14/2015 4:01 PM EDT [employer] [address] [place] [address] [place] [id number] ORD# [id number] Clint Engel MD LAB - BLOOD DRAW Edited Resu lt - Final Performing Organization Address City/[facility] Co de Phone Number [address] [address], from Last 3 Months or Most Recently Relevant to Health Maintenance Insurance [employer] ([facility]) Member Subscriber Plan / Payer (Ef fective 2020-Present) Name:Dominique Lorenzo Relation to Subscriber:Self Name:Dominique Lorenzo Payer ID:[id number] Group ID:Not on file Type:Indemnity Address: [address] [place] [address] [place] MEDICAID DENTAL Member Subscriber Plan / Payer (Ef fective 2021-Present) Name:Dominique Lorenzo Relation to Subscriber:Self Name:Dominique Lorenzo Payer ID:[id number] Group ID:Not on file Type:Medicaid Address: [place] [id number] DENTAL Care Teams Lottery Sales Clerk Relationship Specialty Start Date End Date Gail Obrien PA-C [address] [place] [address] PCP - General 02/14/22
== END 2025-06-07 13:48 | disposition home or self-care (01) ==
LOC: HO.RESP 13:47
PROVIDERS: PCP Hospitalist; Visit Provider Nurse Practitioner Family
DX: R05.9 Cough, unspecified (principal)
CPT/HCPCS: 94010; 94640; 94727; 94729

== ENCOUNTER 2025-06-28 14:12 | Outpatient (AMB) | payer OTHER, SELFPAY ==
[2025-06-28 14:14] VITALS: BP 122/86; PULSE 64; O2SAT 97; BMI 27.1
--- NOTE | 2025-06-28 14:14 | MHC.OFFVIS ---
Vital Signs 06/28/25 14:14 Height 5 ft 2 in Weight 148 lb 2 oz BMI 27.1 BP 122/86 Blood Pressure Location Rt brachial Position Sitting Pulse 64 Pulse Source Pulse Oximeter Pulse Oximetry (%) 97 Oxygen Delivery Method Room Air Intake Visit Reasons: PFT FU Allergies No Known Allergies Allergy (Verified 06/28/25 14:17) HPI HPI PFT FU: Details: Dominique is a pleasant 59 year old female, never smoker, with underlying HLD. She was initially referred by PCP for pulmonary evaluation for chronic cough which has persisted for the last three years that has progressively worsened. Cough is mostly dry however occasionally productive with clear sputum. She reports cough is triggered by cold and more persistent after URI. She also reports occasional increased fatigue with exertion with intermittent wheezing. Denies h/o asthma/COPD. Symptoms thought to be related to RAD however used albuterol with no change in symptoms. At the last visit she was sent for PFT and CXR and presents to review results today. Of note, patient reports cough has lessened over the last few months but still present. Denies symptoms of reflux or post nasal drip. [facility] Social History Patient Tobacco Use Status: Never used Tobacco Review of Systems Const Denies chills, Denies excessive sweating, Denies fever(s), Denies headache(s) and Denies night sweats Eyes Denies dry eyes, Denies irritation and Denies itchy eyes ENT Reports Normal hearing present, Denies headache(s), Denies nasal congestion, Denies nasal discharge, Denies post nasal drip and Denies sore throat Card Denies chest pain, Denies chest pain at rest, Denies chest pain with activity, Denies claudication, Denies leg edema, Denies dyspnea, Denies dyspnea on exertion, Denies orthopnea and Denies paroxysmal nocturnal dyspnea Resp Denies chest congestion, Denies excessive phlegm production, Denies pain on inspiration, Denies pain with cough, Denies dyspnea, Denies dyspnea on exertion and Denies stridor Musc Denies myalgias Neuro Reports Normal hearing present and Denies headache(s) Endo Denies excessive sweating Colt/Lymph Denies lymphadenopathy Aller/Immun Denies itchy eyes and Denies seasonal rhinorrhea Physical Exam Vital Signs: Last Vital Signs Pulse 64 06/28/25 14:14 BP 122/86 06/28/25 14:14 Pulse Ox 97 06/28/25 14:14 Oxygen Delivery Method Room Air 06/28/25 14:14 BMI result Body Mass Index 27.1 Const General: cooperative, healthy appearing, comfortable, no acute distress, well developed and alert Orientation/consciousness: patient oriented x3 Limitations: no limitations HEENT Head: Yes normal to inspection, Yes normocephalic and Yes atraumatic Ears: hearing grossly normal bilaterally and external ears normal Eyes General: appearance normal, both eyes and all related structures Eyelids: Yes eyelids normal Sclerae: sclerae normal EOM: EOMs intact bilaterally Neck Neck: Yes normal visual inspection and Yes no lymphadenopathy Lymphatic: no lymphadenopathy noted Chest Chest palpation & inspection: normal inspection of the chest Resp Effort & Inspection: normal respiratory effort, able to speak in complete sentences, no audible wheezes, no cough, no stridor, not tachypneic, no tripod positioning and no use of accessory muscles Auscultation: clear to auscultation bilaterally Cardio Jugular venous distension: no JVD Rate: regular rate Rhythm: regular rhythm Skin Other: warm, dry General skin exam: no rashes or lesions noted Neuro General: patient oriented x3 Cranial nerves: Yes Normal hearing present Cognition (Neuro): normal cognition Gait exam (Neuro): Normal gait present Extrem General: Yes normal to inspection, Yes capillary refill normal, Yes no clubbing, cyanosis or edema and Yes no pedal edema Psych Appearance: grossly normal and well kempt Speech and movement: Normal speech and movement present and Clear speech present Affect: normal affect Attitude: cooperative Thought process: Normal thought process present Thought content: Normal thought content present Insight: Good insight present (Psych) Judgement: Good judgement present (Psych) Results Reviewed Results Reviewed: RESULT: Chest 2 Views Frontal and Lat Chest 2 Views Frontal and Lat Reason: Cough COMPARISON: None. FINDINGS: LINES AND TUBES: None. LUNGS AND PLEURA: Clear lungs. Normal pulmonary vascularity. No pleural effusion. No pneumothorax. HEART, MEDIASTINUM AND LAWANDA: Heart is normal in size. Normal mediastinal and hilar contour. BONES AND SOFT TISSUES: No acute abnormality. IMPRESSION: No acute abnormality. WSN: [id number] Ordering Physician: Christal Garcia Assessment & Plan Assessment & Plan (1) Cough: Code(s): R05.9 - Cough, unspecified Category: Medical Plan Unfortunately patient unable to successfully complete PFT however information obtained may be suggestive of restrictive defect. Given chronicity of cough and normal CXR, will send for chest CT for further evaluation to assess for any underlying parenchymal condition contributing to cough. All questions were answered and patient is in agreement of plan. Will follow up to review results or sooner if needed. Orders: Orders CT chest wo IV con Today R05.9 - Cough, unspecified Coding Level of Care Code Est Pt Level 4 (63165) Diagnoses Cough R05.9
--- OUTSIDE RECORDS SUMMARY | 2025-06-28 14:52 | XMS_ITS | Clinical Summary ---
Author Organization [facility] Address [address] [place] [address] Care Team Providers Care Geodetic Engineer Name Role Phone Gail Obrien PA-C Primary Care Provider [phone] Source Comments PLEASE NOTE, if this patient [...] 04/10/2024 04/08/2023 Dental Prophy 04/10/2024 04/08/2023, 10/09/2022 [id number] ( season) 2024 10/09/2021, 03/03/2021, 02/10/2021 Alcohol [...] AM EDT) CHOLESTEROL, TOTAL 240(H) <200 mg/dL [facility] HDL CHOLESTEROL 53 > OR = 50 mg/dL [facility] TRIGLYCERIDES 113 <150 mg/dL [facility] LDL-CHOLESTEROL 164(H) 99 mg/dL (calc) [facility] Comment: Reference range: <100 Desirable range <100 mg/dL for primary prevention; <70 mg/dL for patients with CHD or diabetic patients with > or = 2 CHD risk factors. LDL-C is now calculated using the Robbie calculation, which is a validated novel method providing better accuracy than the Friedewald equation in the estimation of LDL-C. Lj SS et al. BRI. 2013;310(25): 7763-9678 (http://education.GiveMeSport/faq/BLN782) CHOL/HDLC RATIO 4.5 <5.0 (calc) [facility] NON-HDL CHOLESTEROL 187(H) <130 mg/dL (calc) [facility] Comment: For patients with diabetes plus 1 major ASCVD risk factor, treating to a non-HDL-C goal of <100 mg/dL (LDL-C of <70 mg/dL) is considered a therapeutic option. Blood Blood / Unknown 02/26/2022 9 :28 AM EDT 02/26/2022 9:28 AM EDT Narrative [facility] - 03/02/2022 12:04 PM EDT FASTING:YES us Gail Obrien PA-C LAB - BLOOD DRAW Final Resul t [facility] [address] [facility] [address] [place] [address], [facility] [address] [address] * CMP (02/26/2022 9:28 AM EDT) GLUCOSE 98 65 - 99 mg/dL [facility] Comment: Fasting reference interval UREA NITROGEN (BUN) 10 7 - 25 mg/dL [facility] CREATININE (blood) 0.62 0.50 - 1.05 mg/dL [facility] Comment: For patients >49 years of age, the reference limit for Creatinine is approximately 13% higher for people identified as -Lebanese. GFR ESTIMATED 102 > OR = 60 mL/min/1 .73m2 [facility] EGFR 118 > OR = 60 mL/min/1 .73m2 [facility] BUN/CREATININE RATIO NOT APPLICABLE 6 - [address] [facility] SODIUM 136 135 - 146 mmol/L [facility] POTASSIUM 4.2 3.5 - 5.3 mmol/L [facility] CHLORIDE 101 98 - 110 mmol/L [facility] CARBON DIOXIDE 29 20 - 32 mmol/L [facility] CALCIUM 9.0 8.6 - 10.4 mg/dL [facility] PROTEIN, TOTAL 7.4 6.1 - 8.1 g/dL [facility] ALBUMIN 4.4 3.6 - 5.1 g/dL [facility] GLOBULIN 3.0 1.9 - 3.7 g/dL (calc) [facility] ALBUMIN/GLOBULIN RATIO 1.5 1.0 - 2.5 (calc) [facility] BILIRUBIN, TOTAL 0.8 0.2 - 1.2 mg/dL [facility] ALKALINE PHOSPHATASE 69 37 - 153 U/L [facility] AST 20 10 - 35 U/L [facility] ALT 18 6 - 29 U/L [facility] Blood Blood / Unknown 02/26/2022 9 :28 AM EDT 02/26/2022 9:28 AM EDT Narrative [facility] - 03/02/2022 12:04 PM EDT FASTING:YES us Gail Obrien PA-C LAB - BLOOD DRAW Edited Resu lt - Final [facility] [address] [address], [facility] [address] [address] * HIV-1 & HIV-2 ANTIBODIES (09/19/2020 11:34 AM EDT) [facility] HIV 1 AND 2 ANTIBODY SCREEN NEGATIVE NEGATIVE [facility] Comment: This assay is [...] AM EDT 09/19/2020 12:57 PM EDT Narrative [facility] - 09/19/2020 4:32 PM EDT [email or web address], [place] [address] Mobile Nurse - Marika Martin MD [place] [id number] ORD# [id number] Ilene KHAN LAB - BLOOD DRAW Final Resu lt Performing Organization Address City/[facility] Co de Phone Number [address] [address], * (ABNORMAL) HEPATITIS A,B,C PANEL (02/14/2015 10:10 AM EDT) HEPATITIS B SURFACE ANTIBODY POSITIVE(A) NEGATIVE [facility] HEPATITIS B SURFACE ANTIGEN NEGATIVE NEGATIVE [facility] HEPATITIS C VIRUS DIAGNOSTIC NEGATIVE NEGATIVE [facility] HEPATITIS A ANTIBODY TOTAL POSITIVE(A) NEGATIVE [facility] HEPATITIS B CORE ANTIBODY NEGATIVE NEGATIVE [facility] Blood specimen (specimen) Blood / Unknown 02/14/2015 10:10 AM EDT 02/14/2015 11:07 AM EDT Narrative [facility] - 02/14/2015 4:01 PM EDT [email or web address] [address] [place] [address] [place] [id number] ORD# [id number] Clint Engel MD LAB - BLOOD DRAW Edited Resu lt - Final Performing Organization Address City/[facility] Co de Phone Number [address] [address], from Last 3 Months or Most Recently Relevant to Health Maintenance Insurance [employer] ([facility]) Member Subscriber Plan / Payer (Ef fective 2020-Present) Name:Dominique Lorenzo Relation to Subscriber:Self Name:Dominique Lorenzo Payer ID:[id number] Group ID:Not on file Type:Indemnity Address: [address] [place] [id number] [place] Member Subscriber Plan / Payer (Ef fective 2021-Present) Name:Dominique Lorenzo Relation to Subscriber:Self Name:Dominique Lorenzo Payer ID:[id number] Group ID:Not on file Type:Medicaid Address: [place] [id number] DENTAL Care Teams Geodetic Engineer Relationship Specialty Start Date End Date Gail Obrien PA-C [address] [place] [address] PCP - General 02/14/22
--- OUTSIDE RECORDS SUMMARY | 2025-06-28 14:53 | XMS_ITS | Patient Health Record ---
Author Organization [facility] [facility] [facility] Address [address] [place] [address] Care Team Providers Care Roping Tender Name Role Phone GILDA MCKNIGHT Primary Care Provider Allergies No Known Allergies Reason For Referral Reason CHRONIC COUGH- DR TIAN BOWSER Diagnosis 1 Cough, unspecified ( R05.9) Referral Organization [facility] Referring Provider First Name GILDA Referring Provider Last Name SOLCaleb Referring Provider Speciality Internal M edicine Referred Provider Specialty Pulmonary Di seases General Notes Referral faxed to nic Pulmonology. Please call patient to schedule.Maddie Christy 01/20/2025 03:03:55 PM > Referral Priority Routine Medications Medication SIG (Take, Route, Frequency, Duration) Notes Start Date End Date Status Atorvastatin Calcium 20 MG 1 tablet Oral ly Once a day; Duration: 30 days Active Immunizations Vaccine Route Administration Date Status [...] W/U Status Risk Notes Problem Mixed hyperlipidemia (912086363) Mixed hyperlipidemia (E78.2) Active confirmed Vital Signs Heart Rate 71 /min 11/22/2024 Temperature 96.9 degrees Fahrenheit 11/22/2024 Oximetry 99 % 11/22/2024 Blood pressure diastolic 84 mm Hg 11/22/2024 Height 5'2 in 11/22/2024 Blood pressure systolic 130 mm Hg 11/22/2024 Weight 150.6 lbs 11/22/2024 BMI 27.54 kg/m2 11/22/2024 Encounters Encounter Location Date Provider Diagnosis [address] [place] [address] 11/22/2024 GILDA MCKNIGHT Mixed hyperlipidemia E78.2 ; Annual physical exam Z00.00 ; Impaired fasting glucose R73.01 and Cough, unspecified R05.[address] [place] [address] 01/20/2025 GILDA MCKNIGHT Assessments Encounter Date Diagnosis (ICD Code) Assessment [...] Future Test Test Name Order Date Hemoglobin [id number] 11/22/2024 Lipid Panel-[id number] 11/22/2024 Comp. Metabolic Panel [id number] 2023 Next Appt Details Provider Name:GILDA MCKNIGHT , 11/24/2025 08:00:00 AM, [address] [place] [address], [place], [address], Insurance Providers Payer Name Payer Address Payer Phone Subscriber Number Group Number Insured Name Patient Relationship to Insured Coverage Start Date Coverage End Date [facility] [address] [place] [address] [id number] LEIGH GODDARD Self - patient is the insured Medical (General) History Medical History History ICD Code Mixed hyperlipidemia Impaired fasting glucose Surgical History Surgery Date(Month/Year) total hysterectomy, excessive bleeding 2 019
== END 2025-06-28 14:43 | disposition home or self-care (01) ==
LOC: HO.HPSW 14:12
PROVIDERS: PCP Hospitalist; Visit Provider Nurse Practitioner Family
DX: R05.9 Cough, unspecified (principal)
CPT/HCPCS: 99214

== ENCOUNTER 2025-09-20 16:41 | Outpatient (REF) | payer OTHER, SELFPAY ==
--- NOTE | ~2025-09-20 | CT_ITS ---
EXAMINATION: CT CHEST WITHOUT CONTRAST CLINICAL INFORMATION: R05.9 - Cough, unspecified COMPARISON: None available. TECHNIQUE: Multidetector volumetric CT imaging of the chest was done. Axial MIP volume rendering provided. Sagittal and coronal reformatted images were obtained. This CT examination was performed using dose optimization techniques as appropriate, variously including the following: *Automated exposure control *Adjustment of mA and/or kV according to patient size (this includes techniques or standardized protocols for targeted exams where dose is matched to indication/reason for exam; i.e. extremities or head) *Use of iterative reconstruction technique FINDINGS: LUNGS: Axial CT #4 image 42: Solid 2 mm nodule is present in the lateral aspect of the posterior apical segment of the left upper lobe. MEDIASTINUM: The mediastinum is normal. CORONARY ARTERY CALCIFICATION: Present PLEURA: There is no pleural effusion. No pleural mass or thickening. AXILLA: No lymphadenopathy. UPPER ABDOMEN: Unremarkable. OSSEOUS STRUCTURES: Unremarkable. CT/CT chest wo IV con IMPRESSION: There is a solid 2 mm nodule in the left apex. No further follow-up is indicated per Fleischner Society recommendations, unless the patient falls into a high risk category, in which case a 12 month follow-up CT chest without contrast is optional. High risk patients includes those with a history of smoking, first-degree relative with lung cancer, or exposure to uranium, radon, or asbestos. Fleischner guidelines were followed. Electronically signed by: Aden Antunez MD 09/20/2025 05:25 PM EDT
--- OUTSIDE RECORDS SUMMARY | 2025-09-20 22:12 | XMS_ITS | Patient Health Record ---
Author Organization [facility] Address [address] [place] [address] Care Team Providers Care Assistant Women'S Tennis Coach Name Role Phone GILDA MCKNIGHT Primary Care Provider Allergies No Known Allergies Reason For Referral Reason CHRONIC COUGH- DR TIAN BOWSER Diagnosis 1 Cough, unspecified ( R05.9) Referral Organization [facility] Referring Provider First [...] W/U Status Risk Notes Problem Mixed hyperlipidemia (318417219) Mixed hyperlipidemia (E78.2) Active confirmed Vital Signs Heart Rate 71 /min 11/22/2024 Temperature 96.9 degrees Fahrenheit 11/22/2024 Oximetry 99 % 11/22/2024 Blood pressure diastolic 84 mm Hg 11/22/2024 Height 5'2 in 11/22/2024 Blood pressure systolic 130 mm Hg 11/22/2024 Weight 150.6 lbs 11/22/2024 BMI 27.54 kg/m2 11/22/2024 Encounters Encounter Location Date Provider Diagnosis [address] [place] [address] 11/22/2024 GILDA MCKNIGHT Mixed hyperlipidemia E78.2 ; Annual physical exam Z00.00 ; Impaired fasting glucose R73.01 and Cough, unspecified R05.[address] [place] [address] 01/20/2025 GILDA MCKNIGHT Assessments Encounter Date Diagnosis [...] Future Test Test Name Order Date Hemoglobin [id number] 11/22/2024 Lipid Panel-[id number] 11/22/2024 Comp. Metabolic Panel [id number] 2023 Next Appt Details Provider Name:GILDA MCKNIGHT , 11/24/2025 08:00:00 AM, [address] [place] [address], [place], [address], Insurance Providers Payer Name Payer Address Payer Phone Subscriber Number Group Number Insured Name Patient Relationship to Insured Coverage Start Date Coverage End Date [facility] [address] [place] [address] [id number] LEIGH GODDARD Self - patient is the insured Medical (General) History Medical History History ICD Code Mixed hyperlipidemia Impaired fasting glucose Surgical History Surgery Date(Month/Year) total hysterectomy, excessive bleeding 2 019
== END 2025-09-20 16:42 | disposition home or self-care (01) ==
LOC: HO.CT 16:41
PROVIDERS: PCP Hospitalist; Visit Provider Nurse Practitioner Family
DX: R05.9 Cough, unspecified (principal)
CPT/HCPCS: 71250

== ENCOUNTER → 2025-09-20 16:45 | Outpatient (BNV) | payer OTHER, SELFPAY | PROVIDERS: PCP Hospitalist; Visit Provider Radiology Diagnostic Radiology | DX: R91.1 Solitary pulmonary nodule (principal) | CPT/HCPCS: 71250 ==

== ENCOUNTER 2025-10-04 14:53 | Outpatient (AMB) | payer OTHER, SELFPAY ==
--- NOTE | 2025-10-04 15:02 | MHC.OFFVIS ---
Vital Signs 10/04/25 15:03 Height 5 ft 2 in Weight 148 lb 2 oz BMI 27.1 BP 110/82 Blood Pressure Location Rt brachial Position Sitting Pulse 74 Pulse Source Pulse Oximeter Pulse Oximetry (%) 97 Oxygen Delivery Method Room Air Intake Visit Reasons: Cough, CT FU Allergies No Known Allergies Allergy (Verified 10/04/25 15:06) HPI HPI Cough, CT FU: Details: Dominique is a pleasant 60 year old female, never smoker, with underlying HLD. Today she is accompanied by her daughter, who she requests to translate and declines [facility] fashion intern. She was initially referred by PCP for pulmonary evaluation for chronic cough which has persisted for the last three years that has progressively worsened. Cough is mostly dry however occasionally productive with clear sputum. She reports cough is triggered by cold and more persistent after URI. Unfortunately, she could not complete PFT, however lung volumes suggestive of restrictive defect and CXR unremarkable, therefore was sent for chest CT. Today she presents to review results of Chest CT, Since the last visit, patient reports cough has changed now harsh with significant tenacious mucus and associated chest congestion. Denies fevers or chills. [facility] Social History Patient Tobacco Use Status: Never used Tobacco Review of Systems Const Denies chills, Denies excessive sweating, Denies fever(s), Denies headache(s) and Denies night sweats Eyes Denies dry eyes, Denies irritation and Denies itchy eyes ENT Reports Normal hearing present, Denies headache(s), Denies nasal congestion, Denies nasal discharge, Denies post nasal drip and Denies sore throat Card Denies chest pain, Denies chest pain at rest, Denies chest pain with activity, Denies claudication, Denies leg edema, Denies dyspnea, Denies dyspnea on exertion, Denies orthopnea and Denies paroxysmal nocturnal dyspnea Resp Denies chest congestion, Reports cough, Denies excessive phlegm production, Denies pain on inspiration, Denies pain with cough, Denies dyspnea, Denies dyspnea on exertion and Denies stridor Musc Denies myalgias Neuro Reports Normal hearing present and Denies headache(s) Endo Denies excessive sweating Colt/Lymph Denies lymphadenopathy Aller/Immun Denies itchy eyes and Denies seasonal rhinorrhea Physical Exam Vital Signs: Last Vital Signs Pulse 74 10/04/25 15:03 BP 110/82 10/04/25 15:03 Pulse Ox 97 10/04/25 15:03 Oxygen Delivery Method Room Air 10/04/25 15:03 BMI result Body Mass Index 27.1 Const General: cooperative, healthy appearing, comfortable, no acute distress, well developed and alert Orientation/consciousness: patient oriented x3 Limitations: no limitations HEENT Head: Yes normal to inspection, Yes normocephalic and Yes atraumatic Ears: hearing grossly normal bilaterally and external ears normal Eyes General: appearance normal, both eyes and all related structures Eyelids: Yes eyelids normal Sclerae: sclerae normal EOM: EOMs intact bilaterally Neck Neck: Yes normal visual inspection and Yes no lymphadenopathy Lymphatic: no lymphadenopathy noted Chest Chest palpation & inspection: normal inspection of the chest Resp Effort & Inspection: normal respiratory effort, able to speak in complete sentences, no audible wheezes, Actively coughing Quality: whooping, no stridor, not tachypneic, no tripod positioning and no use of accessory muscles Auscultation: diminished lung sounds Cardio Jugular venous distension: no JVD Rate: regular rate Rhythm: regular rhythm Skin Other: warm, dry General skin exam: no rashes or lesions noted Neuro General: patient oriented x3 Cranial nerves: Yes Normal hearing present Cognition (Neuro): normal cognition Gait exam (Neuro): Normal gait present Extrem General: Yes normal to inspection, Yes capillary refill normal, Yes no clubbing, cyanosis or edema and Yes no pedal edema Psych Appearance: grossly normal and well kempt Speech and movement: Normal speech and movement present and Clear speech present Affect: normal affect Attitude: cooperative Thought process: Normal thought process present Thought content: Normal thought content present Insight: Good insight present (Psych) Judgement: Good judgement present (Psych) Results Reviewed Results Reviewed: [address] [address] [address] Scan Report Signed Patient: Dominique Lorenzo MR#: [id number] : 1965 Acct:[id number] Age/Sex: 60 / F ADM Date: 09/20/25 Loc: HO.CT Attending Dr: Christal Garcia NP Ordering Physician: Christal Garcia NP Date of Service: 09/20/25 Procedure(s): CT chest wo IV con Accession Number(s): [id number] cc: Samuel Arrieta MD; Christal Garcia NP~ Report Number: [id number]: Total DLP = 143.00 mGy-cm Reason for Exam: R05.9 - Cough, unspecified EXAMINATION: CT CHEST WITHOUT CONTRAST CLINICAL INFORMATION: R05.9 - Cough, unspecified COMPARISON: None available. TECHNIQUE: Multidetector volumetric CT imaging of the chest was done. Axial MIP volume rendering provided. Sagittal and coronal reformatted images were obtained. This CT examination was performed using dose optimization techniques as appropriate, variously including the following: *Automated exposure control *Adjustment of mA and/or kV according to patient size (this includes techniques or standardized protocols for targeted exams where dose is matched to indication/reason for exam; i.e. extremities or head) *Use of iterative reconstruction technique FINDINGS: LUNGS: Axial CT #4 image 42: Solid 2 mm nodule is present in the lateral aspect of the posterior apical segment of the left upper lobe. MEDIASTINUM: The mediastinum is normal. CORONARY ARTERY CALCIFICATION: Present PLEURA: There is no pleural effusion. No pleural mass or thickening. AXILLA: No lymphadenopathy. UPPER ABDOMEN: Unremarkable. OSSEOUS STRUCTURES: Unremarkable. CT/CT chest wo IV con IMPRESSION: There is a solid 2 mm nodule in the left apex. No further follow-up is indicated per Fleischner Society recommendations, unless the patient falls into a high risk category, in which case a 12 month follow-up CT chest without contrast is optional. High risk patients includes those with a history of smoking, first-degree relative with lung cancer, or exposure to uranium, radon, or asbestos. Fleischner guidelines were followed. Electronically signed by: Aden Antunez MD 09/20/2025 05:25 PM EDT RP Dictated By: Aden Antunez MD Signed By: <Electronically signed by Aden Antunez MD in OV> 09/20/25 1725 DD/ 1648 TD/TT: 09/20/25 1701 Weatherization Installer: Assessment & Plan Assessment & Plan (1) Cough: Code(s): R05.9 - Cough, unspecified Category: Medical (2) Pulmonary nodule: Code(s): R91.1 - Solitary pulmonary nodule Category: Medical Plan Unfortunately patient unable to successfully complete PFT however information obtained may be suggestive of restrictive defect. Reviewed chest CT which did not reveal any findings contributing to restrictive defect, although there was note of 2 mm left apex pulmonary nodule. Will repeat in one year to assess stability, order previously placed. At this time, patient with bronchitic symptoms, will treat with azithromycin. She is aware to call if symptoms do not improve. May consider ICS as symptoms suggestive of asthma. All questions were answered and patient is in agreement of plan. Will follow up in 8-10 weeks or sooner if needed. Medications: New azithromycin For 250 mg dose pack: take 500 mg today (day 1), then 250 mg for 4 days (days 2-5) PO 6 tabs 0RF mometasone 100 mcg/actuation (Asmanex HFA) 1 inh inhalation BID 13 grams 2RF Coding Level of Care Code Est Pt Level 4 (28819) Diagnoses Cough R05.9 Pulmonary nodule R91.1
[2025-10-04 15:03] VITALS: BP 110/82; PULSE 74; O2SAT 97; BMI 27.1
--- OUTSIDE RECORDS SUMMARY | 2025-10-04 18:01 | XMS_ITS | Clinical Summary ---
Author Organization [facility] Address [address] [place] [address] Care Team Providers Care Fountain Pen Turner Name Role Phone Gail Obrien PA-C Primary Care Provider [phone] Source Comments PLEASE NOTE, if this patient [...] Screening 1965 Dental FMX/Pano 1965 HPV Screening (self-collect) 1965 HPV Screening 1965 Pap + HPV [...] 04/10/2024 04/08/2023 Dental Prophy 04/10/2024 04/08/2023, 10/09/2022 Alcohol and Drug Screen 11/30/2024 12/11/19 23, 02/24/2022, 09/19/2020, Additional history exists Depression Annual Screen 11/30/2024 12/11/2022, 01/28 Diabetes Screening 02/26/2025 02/26/2022, 1 , 09/19/2020, Additional history exists [id number] ( season) 2025 10/09/2021, 03/03/2021, 02/10/2021 Imm-Influenza (#1) 2025 12/11/2022, 1 , 08/23/2019, [...] Screening Discontinued Cervical Cryotherapy Discontinued Colposcopy Discontinued Excision/Leep Discontinued HPV Genotyping Discontinued Imm-Hepatitis [...] 3:00 AM EDT) 03/25/2022 3:00 AM EDT us Gail Obrien PA-C IMG RFL MAMMO Edited Resul t - Final * (ABNORMAL) Lipid panel (02/26/2022 9:28 AM EDT) CHOLESTEROL, TOTAL 240(H) <200 mg/dL [facility] HDL CHOLESTEROL 53 > OR = 50 mg/dL [facility] TRIGLYCERIDES 113 <150 mg/dL [facility] LDL-CHOLESTEROL 164(H) 99 mg/dL (calc) [facility] Comment: Reference range: <100 Desirable range <100 mg/dL for primary prevention; <70 mg/dL for patients with CHD or diabetic patients with > or = 2 CHD risk factors. LDL-C is now calculated using the Robbie calculation, which is a validated novel method providing better accuracy than the Friedewald equation in the estimation of LDL-C. Lj SS et al. BRI. 2013;310(19): 0625-0071 (http://education.[employer]/faq/LYP889) CHOL/HDLC RATIO 4.5 <5.0 (calc) [facility] NON-HDL CHOLESTEROL 187(H) <130 mg/dL (calc) [facility] Comment: For patients with diabetes plus 1 major ASCVD risk factor, treating to a non-HDL-C goal of <100 mg/dL (LDL-C of <70 mg/dL) is considered a therapeutic option. Blood Blood / Unknown 02/26/2022 9 :28 AM EDT 02/26/2022 9:28 AM EDT Narrative [facility] - 03/02/2022 12:04 PM EDT FASTING:YES us Gail Obrien PA-C LAB - BLOOD DRAW Final Resul t [facility] [address] [address], [facility] [address] [address] * CMP (02/26/2022 9:28 AM EDT) GLUCOSE 98 65 - 99 mg/dL [facility] Comment: Fasting reference interval UREA NITROGEN (BUN) 10 7 - 25 mg/dL [facility] CREATININE (blood) 0.62 0.50 - 1.05 mg/dL [facility] Comment: For patients >49 years of age, the reference limit for Creatinine is approximately 13% higher for people identified as -Bulgarian. GFR ESTIMATED 102 > OR = 60 mL/min/1 .73m2 [facility] EGFR 118 > OR = 60 mL/min/1 .73m2 [facility] BUN/CREATININE RATIO NOT APPLICABLE 6 - 22 [facility] SODIUM 136 135 - 146 mmol/L [facility] POTASSIUM 4.2 3.5 - 5.3 mmol/L [facility] CHLORIDE 101 98 - 110 mmol/L [facility] CARBON DIOXIDE 29 20 - 32 mmol/L [facility] CALCIUM 9.0 8.6 - 10.4 mg/dL [facility] PROTEIN, TOTAL 7.4 6.1 - 8.1 g/dL [facility] ALBUMIN 4.4 3.6 - 5.1 g/dL [facility] GLOBULIN 3.0 1.9 - 3.7 g/dL (calc) [facility] ALBUMIN/GLOBULIN RATIO 1.5 1.0 - 2.5 (calc) [facility] BILIRUBIN, TOTAL 0.8 0.2 - 1.2 mg/dL [facility] ALKALINE PHOSPHATASE 69 37 - 153 U/L [facility] AST 20 10 - 35 U/L [facility] ALT 18 6 - 29 U/L [facility] Blood Blood / Unknown 02/26/2022 9 :28 AM EDT 02/26/2022 9:28 AM EDT Narrative [facility] - 03/02/2022 12:04 PM EDT FASTING:YES Gail Obrien PA-C LAB - BLOOD DRAW Edited Resu lt - Final [facility] [address] [address], [facility] [address] [address] * HIV-1 & HIV-2 ANTIBODIES (09/19/2020 11:34 AM EDT) [facility] HIV 1 AND 2 ANTIBODY SCREEN NEGATIVE NEGATIVE [facility] Comment: This assay is a [...] AM EDT 09/19/2020 12:57 PM EDT Narrative [facility] - 09/19/2020 4:32 PM EDT [employer], [place] [address] Transplant Registered Nurse - Marika Martin MD [place] ID [id number] ORD# [id number] Ilene KHAN LAB - BLOOD DRAW Final Resu lt Performing Organization Address [facility] Co de Phone Number [address] [address], * (ABNORMAL) HEPATITIS A,B,C PANEL (02/14/2015 10:10 AM EDT) HEPATITIS B SURFACE ANTIBODY POSITIVE(A) NEGATIVE [facility] HEPATITIS B SURFACE ANTIGEN NEGATIVE NEGATIVE [facility] HEPATITIS C VIRUS DIAGNOSTIC NEGATIVE NEGATIVE [facility] HEPATITIS A ANTIBODY TOTAL POSITIVE(A) NEGATIVE [facility] HEPATITIS B CORE ANTIBODY NEGATIVE NEGATIVE [facility] Blood specimen (specimen) Blood / Unknown 02/14/2015 10:10 AM EDT 02/14/2015 11:07 AM EDT Narrative [facility] - 02/14/2015 4:01 PM EDT [employer] [address] [place] [address] [place] ID [id number] ORD# [id number] Clint Engel MD LAB - BLOOD DRAW Edited Resu lt - Final Performing Organization Address City/[facility]/ZIP Co de Phone Number [address] [address], from Last 3 Months or Most Recently Relevant to Health Maintenance Insurance [employer] ([employer]) Member Subscriber Plan / Payer (Ef fective 2020-Present) Name:Dominique Lorenzo Relation to Subscriber:Self Name:Dominique Lorenzo Payer ID:[id number] Group ID:Not on file Type:[employer] Address: [address] [place] [address] [place] MED[place] DENT[place] Member Subscriber Plan / Payer (Ef fective 2021-Present) Name:Dominique Lorenzo Relation to Subscriber:Self Name:Dominique Lorenzo Payer ID:[id number] Group ID:Not on file Type:Medicaid Address: [place] [id number] [facility] Care Teams Fountain Pen Turner Relationship Specialty Start Date End Date Gail Obrien PA-C [address] [place] [address] PCP - General 02/14/22
--- OUTSIDE RECORDS SUMMARY | 2025-10-04 18:01 | XMS_ITS | Patient Health Record ---
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 Role Phone GILDA MCKNIGHT Primary Care Provider Allergies No Known Allergies Reason For Referral Reason CHRONIC COUGH- DR TIAN BOWSER Diagnosis 1 Cough, unspecified ( R05.9) Referral Organization [facility] Referring Provider First Name GILDA [...] W/U Status Risk Notes Problem Mixed hyperlipidemia (301791067) Mixed hyperlipidemia (E78.2) Active confirmed Vital Signs Heart Rate 71 /min 11/22/2024 Temperature 96.9 degrees Fahrenheit 11/22/2024 Oximetry 99 % 11/22/2024 Blood pressure diastolic 84 mm Hg 11/22/2024 Height 5'2 in 11/22/2024 Blood pressure systolic 130 mm Hg 11/22/2024 Weight 150.6 lbs 11/22/2024 BMI 27.54 kg/m2 11/22/2024 Encounters Encounter Location Date Provider Diagnosis [address] [place] [address] 11/22/2024 GILDA MCKNIGHT Mixed hyperlipidemia E78.2 ; Annual physical exam Z00.00 ; Impaired fasting glucose R73.01 and Cough, unspecified R05.[address] [place] [address] 01/20/2025 GILDA MCKNIGHT Assessments Encounter Date Diagnosis [...] Future Test Test Name Order Date Hemoglobin [id number] 11/22/2024 Lipid Panel-[id number] 11/22/2024 Comp. Metabolic Panel [id number] 2023 Next Appt Details Provider Name:GILDA MCKNIGHT , 11/24/2025 08:00:00 AM, [address] [place] [address], [place], [address], Insurance Providers Payer Name Payer Address Payer Phone Subscriber Number Group Number Insured Name Patient Relationship to Insured Coverage Start Date Coverage End Date [facility] [address] [employer] [place] [place] [address] [phone] [id number] LEIGH GODDARD Self - patient is the insured Medical (General) History Medical History History ICD Code Mixed hyperlipidemia Impaired fasting glucose Surgical History Surgery Date(Month/Year) total hysterectomy, excessive bleeding 2 019
== END 2025-10-04 15:39 | disposition home or self-care (01) ==
LOC: HO.HPSW 14:53
PROVIDERS: PCP Hospitalist; Visit Provider Nurse Practitioner Family
DX: R05.9 Cough, unspecified (principal); R91.1 Solitary pulmonary nodule
CPT/HCPCS: 99214